=== PATIENT | male | born 2000 | race Caucasian/White ===

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

== ENCOUNTER 2020-06-22 04:23 | Emergency (ER) | payer SELFPAY ==
[~2020-06-22] VITALS: Ht 172.7 cm; Wt 90.7 kg
[2020-06-22 04:33] VITALS: BP 111/71
--- NOTE | 2020-06-22 05:15 | NUR ---
PT CAME OUT OF ROOM STATING THAT HE WANTED TO LEAVE BECAUSE HE DID NOT WANT TO WAIT. PT WAS INFORMED THAT IF THERE WAS AN INJURY TO HIS SHOULDER THAT HE WOULD BENEFIT FROM WAITING. PT AGREED.
--- NOTE | 2020-06-22 05:20 | ED Upper Extremity ---
General Chief Complaint: Upper Extremity Stated Complaint: L SHOULDER PAIN Nursing Triage Note: PT AMBULATE TO ROOM 07 WITH C/O LEFT SHOULDER PAIN. PT REPORTS WAS AT A [employer] AND SLIPPED IN SOME BEER AND FELL ONTO LEFT SHOULDER. Nursing Sepsis Screen: No Definite Risk Source: patient Exam Limitations: no limitations History of Present Illness Date Seen by Provider: Jun 22, 2020 Time Seen by Provider: 04:55 Initial Comments Patient is a 20yo male presenting c/o L shoulder pain. He states he was at a family gathering when he slipped on beer that had been spilled on the floor and landed directly on his left shoulder. He states he did hit his head somewhat, but did not lose consciousness and was able to stand back up and walk. He has a history of seizures for which he takes Keppra, and has fallen in the past during an episode, but denies having a seizure that caused this fall. Denies headache, dizziness, syncope, or changes in vision or hearing. He admits to drinking alcohol at the gathering including beer and tequila, but is unsure how much. Pain/Injury Location: left shoulder Method of Injury: fell Allergies and Home Medications Allergies Coded Allergies: No Known Drug Allergies (Unverified , 06/06/16) Home Medications No Active Prescriptions or Reported Meds Review of Systems Constitutional: No chills, No dizziness, No fever, No weakness EENTM: No hearing loss, No blurred vision, No double vision, No vision loss, No epistaxis Respiratory: No cough, No short of breath, No wheezing Cardiovascular: No chest pain, No edema, No palpitations, No syncope Gastrointestinal: No abdominal pain, No nausea, No vomiting Genitourinary: no symptoms reported Musculoskeletal: see HPI Skin: no symptoms reported Psychiatric/Neurological: Denies Headache, Denies Numbness, Denies Tingling, Denies Weakness Past Seawujd-Houpuf-Vtutdd Hx Patient Social History Alcohol Use: Regular Use Number of Drinks Today: AA Alcohol Beverage of Choice: Beer Recreational Drug Use: No Smoking Status: Never a Smoker 2nd Hand Smoke Exposure: No Recent Foreign Travel: No Contact w/Someone Who Travel: No Recent Infectious Disease Expo: No Recent Hopitalizations: No Physical Abuse: No Sexual Abuse: No Mistreated: No Fear: No Immunizations Up To Date Tetanus Booster (TDap): Unknown Seasonal Allergies Seasonal Allergies: No Past Medical History Surgeries: No Respiratory: No Cardiac: No Neurological: No Genitourinary: No Gastrointestinal: No Musculoskeletal: No Endocrine: No Cancer: No Psychosocial: No Integumentary: No Blood Disorders: No Family Medical History No Pertinent Family Hx Physical Exam Vital Signs Vital Signs - First Documented 06/22/20 04:33 Temp 36.0 Pulse 112 Resp 18 B/P (MAP) 111/71 (84) O2 Delivery Room Air Capillary Refill : Less Than 3 Seconds Height, Weight, BMI Height: 5'7.00" Weight: 155lbs. oz. 70.828243qj; 30.00 BMI Method:Stated General Appearance: WD/WN, no apparent distress HEENT: PERRL/EOMI, pharynx normal Neck: non-tender, full range of motion Cardiovascular: no edema, no murmur, tachycardia Respiratory: chest non-tender, normal breath sounds, no respiratory distress, no accessory muscle use Gastrointestinal: normal bowel sounds, non tender, soft Shoulder: bone tenderness, limited ROM, swelling Elbow/Forearm: normal inspection, non-tender, no evidence of injury Wrist: Yes normal inspection, Yes non-tender, Yes no evidence of injury Hand: normal inspection, non-tender, no evidence of injury Neurologic/Tendon: normal sensation, normal motor functions, responds to pain Neurologic/Psychiatric: alert, normal mood/affect, oriented x 3 Skin: normal color, warm/dry Progress/Results/Core Measures Results/Orders Vital Signs/I&O 06/22/20 04:33 Temp 36.0 Pulse 112 Resp 18 B/P (MAP) 111/71 (84) O2 Delivery Room Air Blood Pressure Mean: 84 Progress Progress Note : Time: 05:30 Progress Note Patient stated his desire to leave prior to completion of imaging studies, noting he thought his visit would be shorter. He was informed by staff of the risks of leaving prior to the completion of his evaluation, and he stated his understanding and said that he "would come back a different day". He then signed stating his understanding and departed. Departure Departure-Patient Inst. Referrals: NO,LOCAL PHYSICIAN (PCP/Family) Primary Care Physician Scripts No Active Prescriptions or Reported AYAN Bowman MED STUDENT Jun 22, 2020 05:20
--- NOTE | 2020-06-22 05:30 | NUR ---
PT EXITED ROOM WITH HIS JACKET ON AND STATED THAT HE WAS LEAVING. PT STATES THAT HE WILL RETURN AT SOME OTHER TIME.
== END 2020-06-22 05:32 | disposition left against medical advice (07) ==
LOC: EDUNIT# 04:23 → ER 04:25
DX: M25.512 Pain in left shoulder (principal)
CPT/HCPCS: 99282

== ENCOUNTER 2021-06-28 14:25 | Emergency (ER) | payer SELFPAY ==
[~2021-06-28] VITALS: Ht 172.7 cm; Wt 90.7 kg
[2021-06-28 15:15] VITALS: BP 121/68
--- NOTE | 2021-06-28 15:31 | ED Lower Extremity ---
General Chief Complaint: Lower Extremity Stated Complaint: R FOOT PAIN Nursing Triage Note: PT AMB TO FT 3 W REPORTS OF FALLING APPROX 6-7 FT OFF OF LADDER YESTERDAY AT 1100. PT C/O RIGHT ANKLE PAIN AT THIS TIME. A&OX4. Source: patient Exam Limitations: no limitations (ELEN SIDDIQUI) History of Present Illness Date Seen by Provider: Jun 28, 2021 Time Seen by Provider: 15:29 Initial Comments Patient is a 21-year-old male who presents ED with right lateral ankle pain. Patient states he fell down 6 to 7 feet off a ladder yesterday while working. Denies any his head, loss of conscious. Reports pain to his right ankle with inward rotation. Swelling to the right lateral ankle. Pain with movement but is able to stand and bear weight. Denies any head, loss consciousness, low back pain, knee pain. Has been taking anti-inflammatories with some improvement. (ELEN SIDDIQUI) Allergies and Home Medications Allergies Coded Allergies: No Known Drug Allergies (Unverified , 06/06/16) Patient Home Medication List Home Medication List Reviewed: Yes (ELEN SIDDIQUI) No Active Prescriptions or Reported Meds Review of Systems Constitutional: No chills, No diaphoresis, No dizziness, No fever EENTM: No blurred vision, No eye pain Respiratory: No cough, No short of breath Cardiovascular: No chest pain, No edema Gastrointestinal: No abdominal pain, No constipation, No diarrhea, No vomiting Genitourinary: No decreased output, No dysuria Musculoskeletal: No back pain; joint pain, joint swelling Skin: No change in color, No change in hair/nails (ELEN SIDDIQUI) All Other Systems Reviewed Negative Unless Noted: Yes (ELEN SIDDIQUI) Past Sjlmlvd-Qtunyd-Pgript Hx Patient Social History Tobacco Use?: No Use of E-Cig and/or Vaping dev: No Substance use?: No Alcohol Use?: Yes Alcohol Frequency: Daily (ELEN SIDDIQUI) Immunizations Up To Date Tetanus Booster (TDap): Unknown Influenza Vaccine Up-to-Date: No; Not Current First/Initial COVID19 Vaccinat: NONE Second COVID19 Vaccination Sudeep: NONE Third COVID19 Vaccination Date: NONE COVID19 Vaccine Radiology Clerk: NONE (ELEN SIDDIQUI) Seasonal Allergies Seasonal Allergies: No (ELEN SIDDIQUI) Past Medical History Surgeries: No Respiratory: No Cardiac: No Neurological: No Genitourinary: No Gastrointestinal: No Musculoskeletal: No Endocrine: No Cancer: No Psychosocial: No Integumentary: No Blood Disorders: No (ELEN SIDDIQUI) Family Medical History No Pertinent Family Hx (ELEN SIDDIQUI) Physical Exam Vital Signs Vital Signs - First Documented 06/28/21 15:15 Temp 36.3 Pulse 66 Resp 20 B/P (MAP) 121/68 (85) Pulse Ox 98 O2 Delivery Room Air (JOEY SHINE MD) Vital Signs Capillary Refill : Less Than 3 Seconds (ELEN SIDDIQUI) Height, Weight, BMI Height: 5'7.00" Weight: 155lbs. oz. 70.105925sd; 30.00 BMI Method:Stated General Appearance: WD/WN, no apparent distress HEENT: PERRL/EOMI, normal ENT inspection, TMs normal, pharynx normal Neck: non-tender, full range of motion, supple Cardiovascular: regular rate, rhythm, no edema, no gallop, no JVD Respiratory: chest non-tender, lungs clear, normal breath sounds, no respiratory distress Gastrointestinal: normal bowel sounds, non tender, soft, no organomegaly Ankles: right ankle bone tenderness, right ankle soft tissue tenderness Neurologic/Tendon: normal sensation, normal motor functions Skin: warm/dry (ELEN SIDDIQUI) Progress/Results/Core Measures Results/Orders Vital Signs/I&O 06/28/21 15:15 Temp 36.3 Pulse 66 Resp 20 B/P (MAP) 121/68 (85) Pulse Ox 98 O2 Delivery Room Air (JOEY SHINE MD) Blood Pressure Mean: 85 Departure Communication (PCP) X-ray negative for fracture. Joint effusion noted. He is able to stand and bear weight. Ice, anti-inflammatories. Orthopedic follow-up in 7 to 10 days for evaluation. Jatin wrap for support. Limit weightbearing. Crutches as needed. return precautions were discussed with patient. (ELEN SIDDIQUI) Impression Primary Impression: Ankle sprain Disposition: 01 HOME, SELF-CARE Condition: Stable Departure-Patient Inst. Decision time for Depature: 15:48 (ELEN SIDDIQUI) Referrals: NO,LOCAL PHYSICIAN (PCP) Primary Care Physician TRE SAMSON MD Patient Instructions: Ankle Sprain ED Scripts No Active Prescriptions or Reported Meds ATTENDING PHYSICIAN NOTE: I was physically present as attending physician in the emergency department during the care of this patient, but I was not directly involved in the decision making or delivery of care for this patient. (JOEY SHINE MD) ELEN SIDDIQUI Jun 28, 2021 15:31 JOEY SHINE MD Jun 28, 2021 20:32
--- NOTE | 2021-06-28 16:05 | Diagnostic Imaging Report ---
EXAMINATION: Right ankle radiographs, 3 views. COMPARISON: None. HISTORY: 21-year-old male, fall off ladder. Right ankle pain. FINDINGS: There is a tibiotalar joint effusion. The alignment of the ankle mortise is unremarkable. There is no identified acute fracture. There is soft tissue swelling adjacent to the lateral malleolus. IMPRESSION: 1. Soft tissue swelling adjacent to the lateral malleolus. 2. Large tibiotalar joint effusion. 3. No identified acute osseous abnormality. Dictated by: Dictated on workstation # [id number]
== END 2021-06-28 16:22 | disposition home or self-care (01) ==
LOC: EDUNIT# 14:25 → ER 14:26
DX: S93.401A Sprain of unspecified ligament of right ankle, initial encounter (principal); W11.XXXA Fall on and from ladder, initial encounter
CPT/HCPCS: 73610

== ENCOUNTER 2023-03-05 23:27 | Emergency (ER) | payer SELFPAY ==
[~2023-03-05] VITALS: Ht 172.7 cm; Wt 93.0 kg
[2023-03-05] MEDS ORDERED: Tetanus/Diphtheria/Pertussis (Acell) ADULT Vaccine 0.5 ML IM ONE (23:45)
[2023-03-05] MEDS ORDERED: LIDOCAINE 1% INJ 20 ML VIAL IJ ONE (23:45)
--- NOTE | 2023-03-05 23:47 | ED Head Injury ---
General Chief Complaint: Laceration Stated Complaint: HEAD LAC Source: patient History of Present Illness Date Seen by Provider: Mar 05, 2023 Time Seen by Provider: 23:39 Initial Comments PT ARRIVES VIA POV WITH FEMALE AND CHILD PT STATES ABOUT 30 MINUTES AGO, HE WAS AT A GRE[employer] PARTY AT [facility] AND HE FELL DOWN "1 OR 2 STEPS" PT STATES HE WAS "REALLY DRUNK" AND THINKS HE MISSED A STEP AND FELL. LATER STATES HE IS NOT SURE HOW MANY STEPS HE FELL DOWN HE STATES HE THINKS HE MIGHT HAVE HIT THE BACK OF HIS HEAD ON THE RAILING OF THE STAIRS, BUT ALSO STATES HE REALLY DOES NOT KNOW WHAT HE HIT HIS HEAD ON. HE HAS A LACERATION TO THE RIGHT POSTERIOR ASPECT OF HIS HEAD HE ALSO HAS RED/SWOLLEN AREAS TO HIS RIGHT SHINTO AND LEFT FOREHEAD--HE STATES HE DOES NOT KNOW HOW HE INJURED THOSE AREAS HE IS ADAMANT THAT HE DID NOT HAVE LOSS OF CONSCIOUSNESS. C/O PAIN TO HEAD OVER THE POSTERIOR SCALP LACERATION, BUT DENIES AN ACTUAL HEADACHE DENIES NECK OR BACK PAIN DENIES DIZZINESS NO VISION CHANGES NO EXTREMITY PAIN NO PROBLEMS WALKING OR TALKING NO NAUSEA/VOMITING. NO PARESTHESIAS OR MOTOR DEFICITS LAST TETANUS IS UNKNOWN. HE STATES HE HAS NO MEDICAL PROBLEMS AND DOES NOT TAKE ANY MEDICATIONS AND NEVER HAD SURGERY HE DENIES SMOKING OR VAPING OR DRUG USE. HE ADMITS TO REGULAR ALCOHOL USE PCP: NONE Allergies and Home Medications Allergies Coded Allergies: No Known Drug Allergies (Unverified , 06/06/16) Patient Home Medication List Home Medication List Reviewed: Yes No Active Prescriptions or Reported Meds Review of Systems Review of Systems Constitutional: no symptoms reported Eyes: No Symptoms Reported Ears, Nose, Mouth, Throat: no symptoms reported Respiratory: no symptoms reported Cardiovascular: no symptoms reported Gastrointestinal: no symptoms reported Genitourinary: no symptoms reported Musculoskeletal: no symptoms reported Skin: see HPI Psychiatric/Neurological: See HPI Endocrine: No Symptoms Reported Hematologic/Lymphatic: No Symptoms Reported Past Ycegmyc-Cgyoiq-Yviste Hx Patient Social History Tobacco Use?: No Use of E-Cig and/or Vaping dev: No Substance use?: No Alcohol Use?: Yes Alcohol Frequency: Daily Immunizations Up To Date Tetanus Booster (TDap): Unknown First/Initial COVID19 Vaccinat: NONE Second COVID19 Vaccination Sudeep: NONE Third COVID19 Vaccination Date: NONE Seasonal Allergies Seasonal Allergies: No Past Medical History Surgeries: No Respiratory: No Cardiac: No Neurological: No Genitourinary: No Gastrointestinal: No Musculoskeletal: No Endocrine: No HEENT: No Cancer: No Psychosocial: No Integumentary: No Blood Disorders: No Family Medical History No Pertinent Family Hx Physical Exam Vital Signs Vital Signs - First Documented 03/05/23 03/06/23 23:38 01:01 Temp 37.1 Pulse 111 Resp 16 B/P (MAP) 123/92 (102) Pulse Ox 99 O2 Delivery Room Air Capillary Refill : Height, Weight, BMI Height: 5'7.00" Weight: 155lbs. oz. 70.377349it; 30.00 BMI Method:Stated General Appearance: WD/WN, no apparent distress, other (REEKS OF ALCOHOL; SPEECH IS CLEAR AND GAIT IS STEADY) HEENT: PERRL/EOMI, normal ENT inspection, TMs normal, pharynx normal, other (EYES VERY BLOOD SHOT. THERE IS ERYTHEMA AND EARLY BRUISING TO RIGHT SHINTO AND LEFT FOREHEAD. RIGHT POSTERIOR SCALP WITH 2.5 CM L-SHAPED LACERATION. NO BLEEDING. NO SWELLING OR HEMATOMA OR BONY TENDERNESS OR DEFORMITY. ) Neck: non-tender, full range of motion, supple, normal inspection Cardiovascular: regular rate, rhythm, no murmur Respiratory: chest non-tender, normal breath sounds, no respiratory distress, no accessory muscle use Gastrointestinal: non tender, soft Back: normal inspection, no CVA tenderness, no vertebral tenderness Extremities: normal range of motion, non-tender, normal inspection, no pedal edema, no calf tenderness, normal capillary refill Psychiatric: alert, oriented x 3 Crainal Nerves: normal hearing, normal speech, PERRL Coordination/Gait: normal gait Motor/Sensory: no motor deficit, no sensory deficit Skin: normal color (), warm/dry, other (WOUNDS NOTED ABOVE) [place] Coma Score Best Eye Response: (4) Open Spontaneously Best Verbal Response: (5) Oriented Best Motor Response: (6) Obeys Commands Matthew Total: 15 Procedures/Interventions Wound Location: Scalp Wound Length (cm): 2.5 Wound's Depth, Shape: irregular, sub Q Wound Explored: clean Betadine Prep?: No (BETASEPT) Anesthesia: 1% Lidocaine Staple Repair: Stapler 35W (#4 SOBIA) Progress/Results/Core Measures Results/Orders My Orders Orders - SEAN JACKSON DO Dipht/Pertuss(Acell)/Tet Adult (Dipht/Pe (03/05/23 23:45) Lidocaine 1% Inj 20 Ml (Xylocaine 1% Inj (03/05/23 23:45) Ct Head/Face/Cervical Wo (03/06/23 00:01) Medications Given in ED Current Medications Medications Dose Ordered Sig/Milo Route Start Time Stop Time Status Last Admin Dose Admin Diphtheria/ Tetanus/Acell Pertussis 0.5 ml ONCE ONCE IM 03/05/23 23:45 03/05/23 23:46 DC 03/05/23 23:54 0.5 ML Lidocaine HCl 20 ml ONCE ONCE IJ 03/05/23 23:45 03/05/23 23:46 DC 03/05/23 23:57 5 ML Vital Signs/I&O 03/05/23 03/06/23 23:38 01:01 Temp 37.1 37.1 Pulse 111 98 Resp 16 16 B/P (MAP) 123/92 (102) 120/91 Pulse Ox 99 99 O2 Delivery Room Air Progress Progress Note : Progress Note VITALS STABLE PT IS NEUROLOGICALLY INTACT, WITH CLEAR SPEECH AND STEADY GAIT NO SYMPTOMS OR COMPLAINTS DURING ER STAY DPT VACCINATION GIVEN CT SCAN IS UNREMARKABLE FOR INTRACRANIAL OR BONY INJURY. DISCUSSED TEST RESULTS, ANTICIPATED COURSE, SYMPTOMATIC TREATMENT, WOUND CARE, NEED FOR FOLLOW UP FOR STAPLE REMOVAL AND RETURN PRECAUTIONS REVIEWED PRIOR RECORDS--ALL ER VISITS, WITH MOST VISITS FOR VARIOUS INJURIES Diagnostic Imaging Comments CT HEAD/MAXILLOFACIAL/CERVICAL SPINE--PER [facility] VIA FAX AT 0057 -POSTERIOR PARIETAL SCALP CONTUSION/LACERATION -NO SKULL FRACTURE OR INTRACRANIAL HEMORRHAGE -NO MAXILLOFACIAL OR ORBITAL FRACTURE -NO CERVICAL FRACTURE. Reviewed: Reviewed by Me Departure Impression Primary Impression: Scalp laceration Additional Impressions: Jryoinxgxm-mrdhzcdhc-tyczykd (DPT) vaccination administered at current visit Minor head injury without loss of consciousness Disposition: HOME, SELF-CARE Condition: Stable Departure-Patient Inst. Decision time for Depature: 23:46 Referrals: NO,LOCAL PHYSICIAN (PCP/Family) Primary Care Physician Patient Instructions: Laceration Repair With [facility], Head Injury in Adults (DC), Diphtheria and Tetanus Toxoids, and Acellular Pertussis Vaccine Add. Discharge Instructions: TYLENOL NEEDED FOR PAIN ICE TO AREA AT 20 MINUTE INTERVALS YOU MAY CLEAN THE WOUND TWICE A DAY WITH ANTIBACTERIAL SOAP AND WATER, OTHERWISE KEEP CLEAN AND DRY. SOBIA OUT IN 10 DAYS--RETURN TO ER FOR REMOVAL All discharge instructions reviewed with patient and/or family. Voiced understanding. Scripts No Active Prescriptions or Reported Meds SEAN JACKSON DO Mar 05, 2023 23:47
[2023-03-06 01:01] VITALS: BP 120/91
--- NOTE | 2023-03-06 03:46 | Diagnostic Imaging Report ---
PROCEDURE: CT head, face, and cervical spine without contrast. TECHNIQUE: Multiple contiguous axial images were obtained through the head, neck, and facial bones without the use of intravenous contrast. Sagittal and coronal reformations through the cervical spine and facial bones were also performed. Auto Exposure Controls were utilized during the CT exam to meet ALARA standards for radiation dose reduction. INDICATION: Trauma. COMPARISON: CT head without contrast 05/05/2019. FINDINGS: CT HEAD: No intracranial hemorrhage, mass effect, hydrocephalus or extra-axial fluid collections. No CT evidence for territorial infarction. The mastoids are clear. No acute osseous findings. CT MAXILLOFACIAL: No maxillofacial fractures. Mild mucosal thickening in the maxillary and ethmoid sinuses. Normal alignment of the temporomandibular joints. The mandible is intact. The orbits are unremarkable. CT CERVICAL SPINE: Normal alignment. Vertebral body heights preserved. No fractures. No substantial spondylotic change. Lung apices are clear. The visualized paravertebral soft tissues are unremarkable. IMPRESSION: No acute intracranial or cervical spine CT findings. No maxillofacial fractures. Dictated by: Dictated on workstation # [id number]
== END 2023-03-06 01:01 | disposition home or self-care (01) ==
LOC: EDUNIT# 23:27 → ER 23:32
DX: S09.90XA Unspecified injury of head, initial encounter (principal); S01.01XA Laceration without foreign body of scalp, initial encounter; Z28.310 Unvaccinated for COVID-19; Z23 Encounter for immunization; W10.9XXA Fall (on) (from) unspecified stairs and steps, initial encounter; Y92.29 Other specified public building as the place of occurrence of the external cause
CPT/HCPCS: 12001; 70450; 70486; 72125; 90715

== ENCOUNTER 2023-03-18 19:59 | Emergency (ER) | payer SELFPAY ==
[~2023-03-18] VITALS: Ht 172 cm; Wt 83.0 kg
[2023-03-18 20:00] VITALS: BP 134/84
== END 2023-03-18 20:14 | disposition home or self-care (01) ==
LOC: EDUNIT# 19:59 → ER 20:02
DX: Z48.02 Encounter for removal of sutures (principal); Z28.310 Unvaccinated for COVID-19